=== PATIENT | male | born 1950 | race Caucasian/White ===

== ENCOUNTER → 2017-08-04 | Outpatient (CLI) | payer OTHER ==
[~2017-08-04] VITALS: Ht 177.8 cm; Wt 106.6 kg
[~2017-08-04] MED LIST: ACETAMINOPHEN-1 EAC1 PO; CARDIZEM CD120 MG PO; COUMADIN 5 MG TA5 M1 PO; FLEXERIL PO; FLOMAX0.4 MG PO; LASIX 40 MG TAB40 M2 PO; LOPRESSOR25 PO; METFORMIN HCL500 MG PO; NEURONTIN 300300 M1 PO; OMEPRAZOLE40 MG PO; PERCOCET 10-321 EACH PO; POTASSIUM20 PO; PRAVACHOL40 MG PO; SINEMET 25-1001 EAC1 PO; WELLBUTRIN XL300 MG PO
--- NOTE | ~2017-08-04 | HPC ---
[facility] [address] [place] [address] PAIN MANAGEMENT CONSULTATION Name: KAREN PEREZ Room #: REG [facility]#: [id number] Admission: 08/04/17 Attend Phys: Kevin Purdy DO Discharge: Date of : 52 Report #: [id number] THIS REPORT FOR: //name// CC: Darinel Purdy DATE OF SERVICE: 08/04/2017 REFERRING PHYSICIAN: Dr. Dashawn Joshi. CHIEF COMPLAINT: Low back pain, bilateral lower extremity pain with paresthesias. HISTORY OF PRESENT ILLNESS: As you know, the patient is a 67-year-old male with long-standing history of low back pain, bilateral lower extremity pain. The patient indicates pain began 15 years ago. He denies injury or trauma that may have led to symptom development. He indicates that he has had several epidural injections under fluoroscopic guidance at [facility], both pre and post-surgery, which provided some benefit, but it was transient in nature. He indicates he underwent surgery with Dr. Michel, a laminectomy in 2016. He received pain relief for approximately 1 year. He states that soon after his pain returned and progressively worsened. He states he has discussed his case with his primary care physician, who referred the patient to our clinic to discuss interventional treatments that might be beneficial. He indicates today pain is steady and intermittent, describes the pain as burning, shooting, aching, throbbing, sharp, stabbing, tender, numbness and tingling. He indicates pain level of around 8/10 today, daily average of 6-10/10, worst pain has been is 10/10. The patient states that standing and walking exacerbate symptoms, pain medications and lying down tends to improve pain. He has been referred to our service without imaging studies. He states he does take Percocet for pain control being provided through his PCP. He has been referred to our service to discuss options of treatment. PAST MEDICAL HISTORY: 1. Diabetes mellitus type 2. 2. Depression. 3. Peripheral neuropathy. 4. Acid reflux. 5. Hypertension. 6. Spinal stenosis. 7. Osteoarthritis. 8. Parkinson's disease. 9. History of mild transient ischemic attacks and CVAs, requiring anticoagulation. 10. Sleep apnea. [address] [address] PAIN MANAGEMENT CONSULTATION Name: KAREN PEREZ Room #: REG [facility] Weaver#: [id number] Admission: 08/04/17 Attend Phys: Kevin Purdy DO Discharge: Date of : 52 Report #: [id number] PAST SURGICAL HISTORY: Back surgeries x 2; carpal tunnel release in 2001, repeat 2002; and bilateral foot surgery. SOCIAL HISTORY: The patient denies tobacco, alcohol, IV or illicit drug use. He is on disability. He has been so for 10 years. He is receiving disability income. He is not in litigation in regards to pain. He is unaccompanied at today's visit. REVIEW OF SYSTEMS: Positive for weight gain, decrease in appetite, fatigue and weakness, frequent and recurrent headaches, wearing corrective eyewear, blurred and double vision, cataracts, hearing loss with tinnitus or sore throat, voice changes, palpitations, shortness of breath with walking or lying flat, loss of appetite, bowel movement changes, constipation, frequent urination, nocturia, kidney stones, sexual difficulty, testicular pain, numbness and tingling sensations in lower extremities bilaterally, paralysis, history of stroke, memory loss with confusion, nervousness, depression, insomnia, diabetes mellitus type 2, excessive thirst, urination, heat and cold intolerance, , bleeding tendencies secondary to anticoagulants. All other review of systems negative per 12-point review of systems other than those listed in history of present illness. Pain impact score 56/70 indicating severe interference of daily activities secondary to pain. ALLERGIES: No known drug allergies. CURRENT MEDICATIONS: Furosemide 70 mg once a day, metformin 500 mg twice a day, metoprolol 25 mg 1/2 tab p.o. b.i.d., vitamin D3 once a day, warfarin 5 mg per day, bupropion XL 300 mg per day, potassium chloride 20 mEq 2 tabs per day, omeprazole 40 mg per day, gabapentin 300 mg 2 tabs p.o. at bedtime, tamsulosin 0.4 mg once a day, carbidopa/levodopa 1 tab 4 times a day, diltiazem 120 mg once a day, pravastatin 20 mg per day, cyclobenzaprine 10 mg 3 times a day, Percocet 10/325 two tabs every 6 hours p.r.n. for pain, Tylenol 3 one tab p.o. b.i.d. p.r.n. mild pain. IMAGING: No imaging available. PQRS: The patient has osteoarthritis, no rheumatoid arthritis. Pain intensity today 8/10. He is a fall risk. He has had a fall in the past 3 months. He does not use any type of ambulatory device. He is on blood thinners in the form of warfarin. He has a history of hypertension. He has been on opioids for greater than 6 weeks being provided by another physician. Functional assessment tool, pain impact score shows 56/70, severe interference. PHYSICAL EXAMINATION: [facility] [address] [place] [address] PAIN MANAGEMENT CONSULTATION Name: KAREN PEREZ Room #: REG [facility]#: [id number] Admission: 08/04/17 Attend Phys: Kevin Purdy DO Discharge: Date of : 52 Report #: [id number] VITAL SIGNS: Blood pressure 150/87, pulse 109, respiratory rate 20 and unlabored. The patient is 98% on room air. Height 5 feet 10 inches tall, weight 235 pounds, BMI calculated 33.7. GENERAL: Well-developed, well-nourished, well-hydrated exogenously obese 67-year-old male, appears much older than stated age. He is placing current pain score at around 8/10. HEENT: Normocephalic, atraumatic. Pupils equal, round, reactive to light. Extraocular muscles are intact. Sclerae nonicteric without injection. NEUROLOGIC: Cranial nerves 2 through 12 grossly intact. Speech is fluent. The patient deemed a fair historian. LUNGS: Clear; no wheeze, rhonchi or rales. CARDIOVASCULAR: Tachycardic. No appreciable gallop or rub. ABDOMEN: Soft, obese, normoactive bowel sounds. EXTREMITIES: Show no clubbing, no cyanosis, no edema. MUSCULOSKELETAL: Lower extremity strength appears symmetrical, 5/5. He is intact to light touch from L1 through S2 dermatomes. Seated straight leg raising negative. Supine straight leg raising mildly positive on the right at 45 degrees. Allyssa's test is negative. Modified Gaenslen's positive for axial low back pain. Ankle clonus negative. Babinski is negative. Deep tendon reflexes are symmetrical at patella and Achilles. Lumbar provocation testing including extension, rotation, lateral flexion all intensify axial back pain. Well healed surgical scars over the lumbar region. There is some paraspinal muscle tenderness. ASSESSMENT: 1. Chronic lumbar radiculopathy. 2. Lumbosacral spondylosis with radicular symptoms. 3. Lumbar degeneration. 4. Chronic intractable pain. PLAN: 1. The patient has been referred to our service for discussion of low back pain, bilateral lower extremity pain. There is a presumptive diagnosis of spinal stenosis given to the patient by his primary care. Given his bilateral nature of symptoms, does appear that he has some central canal stenosis, the extent of which is not determinable by physical exam alone. We have recommended the patient begin with x-ray imaging of the lumbar spine. We will send him for the x-ray imaging today. This will help us determine the extent of bony abnormalities, though ultimately we would need to have an MRI of the lumbar spine to further evaluate. We will send the patient for x-ray imaging today. He will return to see his primary care to initiate MRI referral. The MRI will be necessary to determine the course of treatment in this patient's case. The patient and I discussed at length the interventional treatments we have available for lumbar radicular symptoms, all of which would require the patient to come off of his warfarin. I would recommend that MRI be obtained initially, so that we can plan fully the treatment course. Then, when to have the patient [address] [address] PAIN MANAGEMENT CONSULTATION Name: JESSIEYANETKAREN Room #: REG CLI Meg#: [id number] Admission: 08/04/17 Attend Phys: Kevin Purdy DO Discharge: Date of : 52 Report #: [id number] come off the warfarin for injection therapies, we can be more definitive in our treatment timing. The patient was amenable to the idea of undergoing imaging, so we can determine if surgical options are necessary initially, that way we can move forward with more aggressive treatment options if needed. 2. The patient will be sent for x-ray imaging of the lumbar spine. We have requested AP, lateral plain films to be done as quickly as possible, review the findings once available. The patient can contact our clinic either later today or first thing tomorrow for the results. These results will also be provided to his primary care physician. 3. No medication changes made at today's visit. Would recommend the patient continue on current medication management. 4. The patient and I discussed the need to come off his warfarin for at least 5 days. This is per the LIZA guidelines in preparation for neural axial blockade of any type including epidural injections, intra-articular facet injections and any other type of injection in and around the lumbar spine area. The patient will need to receive clearance from his prescribing physician to come off the Coumadin in preparation for such procedures. I did describe to the patient the concerns we have with coming off anticoagulants with his history. He will need to receive clearance to come off this medication. 5. We will see the patient back in followup visit once he has completed his MRI. We will review the findings at that time and discuss interventional treatment options that we might have available to treat his ongoing pain issues. I have recommended the patient to gain clearance to come off his Coumadin, but not discontinue his Coumadin until after which time we have reviewed the MRI with the patient and determine the options for treatment in which direction we wish to move for interventional therapies. 6. I wish to thank the referring physician for the opportunity to see this patient in consultation. We will keep you apprised of his response to treatment once we have determined the treatment path. We wish to again, thank you for the opportunity to see the patient in consultation. We will await his return with imaging available. Again, we wish to thank you for the opportunity to see this patient in consultation. <ELECTRONICALLY SIGNED> By: Kevin Purdy DO 08/11/17 [id number] Kevin Purdy DO /nt
[2017-08-04 10:08] VITALS: BP 150/87
== END ==
LOC: PAIN 07:10
DX: M47.895 Other spondylosis, thoracolumbar region (principal); M54.16 Radiculopathy, lumbar region; M47.897 Other spondylosis, lumbosacral region; M51.36 Other intervertebral disc degeneration, lumbar region; E11.9 Type 2 diabetes mellitus without complications; I10 Essential (primary) hypertension; G20 Parkinson's disease; G45.9 Transient cerebral ischemic attack, unspecified

== ENCOUNTER → 2017-10-14 | Outpatient (CLI) | payer OTHER, MEDICARE ==
[~2017-10-14] VITALS: Ht 177.8 cm; Wt 107.6 kg
[~2017-10-14] MED LIST changes: +XARELTO20 MG PO
--- NOTE | ~2017-10-14 | HPC ---
[facility] [place] [address] PAIN MANAGEMENT CONSULTATION Name: KAREN PEREZ [facility] [id number] Admission: 10/14/17 Attend Phys: Kevin Purdy DO Discharge: Date of : 52 Report #: [id number] THIS REPORT FOR: //name// CC: Darinel Purdy DATE OF SERVICE: 10/14/2017 CHIEF COMPLAINT: Low back pain, bilateral lower extremity pain and paresthesias. HISTORY OF PRESENT ILLNESS: As you know, the patient is a 67-year-old male with longstanding history of low back pain, bilateral lower extremity pain and paresthesias. The patient indicates pain began about 15 years ago. He denies any specific injury or trauma. We saw the patient in consultation 08/04/2017, where he was advised treatment options for his chronic lumbar radiculopathy. The patient chose to consider options and he has returned today in followup visit 10/14/2017 to undergo epidural injection under fluoroscopic guidance. He indicates today a pain level of 10/10, states his pain is sharp, shooting, aching, burning in sensation, exacerbated with standing, walking, improves with medications and lying down. The patient returns today in followup visit requesting epidural injection under fluoroscopic guidance in hopes of improving his ongoing low back and bilateral lower extremity symptoms. ALLERGIES: NO KNOWN DRUG ALLERGIES. CURRENT MEDICATIONS: Tylenol No. 3, oxycodone, cyclobenzaprine, pravastatin, diltiazem, carbidopa/levodopa, tamsulosin, gabapentin, omeprazole, furosemide, metformin, metoprolol, bupropion and potassium chloride. He has discontinued his Xarelto. SOCIAL HISTORY: The patient denies tobacco, alcohol, IV or illicit drug use. He is on disability. He has been so for over 10 years. He is unaccompanied today. IMAGING: No new imaging available. PQRS: The patient has osteoarthritis of the back, neck, shoulders and knees. No rheumatoid arthritis. The patient's intensity of pain is rated at 10/10. He is not a fall risk, has not had a fall in the last 3 months. He is on a blood thinner in the form of Xarelto, but discontinued in preparation for today's procedure. He is treated for hypertension. He is not on opioids. He has a low opioid assessment risk. His functional assessment pain impact score 56/70 indicating severe interference. [address] [address] PAIN MANAGEMENT CONSULTATION Name: KAREN PEREZ Room #: REG [facility]#: [id number] Admission: 10/14/17 Attend Phys: Kevin Purdy DO Discharge: Date of : 52 Report #: [id number] PHYSICAL EXAMINATION: VITAL SIGNS: Blood pressure 177/95, pulse 86, respiratory rate 20 and unlabored. The patient is 99% on room air. Height 5 feet 10 inches tall, weight 237.2 pounds, BMI calculated 34.0. GENERAL: Well-developed, well-nourished, well-hydrated exogenously obese 67-year-old male appearing stated age, placing current pain score 10/10. HEENT: Normocephalic, atraumatic. Pupils are equal, round, reactive to light. Extraocular muscles are intact. EXTREMITIES: Show no clubbing, no cyanosis, no edema. MUSCULOSKELETAL: Lower extremity strength appears symmetrical 5/5, intact to light touch from L1 through S2 dermatomes. Seated straight leg raising negative. Supine straight leg raising mildly positive on the right. Fabere's test negative. Gait mildly antalgic favoring right lower extremity over left. ASSESSMENT: 1. Chronic lumbar radiculopathy. 2. Lumbosacral spondylosis with radicular symptoms. 3. Lumbar degeneration. 4. Chronic intractable pain. PLAN: 1. The patient returns today in followup visit to undergo epidural injection under fluoroscopic guidance. The patient has stopped his Xarelto 3 days prior to today's appointment in preparation for an injection. He has received clearance to come off his Xarelto by the prescribing physician. He is off the Xarelto in a timely manner, so he can undergo the procedure today. The patient has been advised of the risks and benefits. Following was discussed. We discussed risks that include, but are not necessarily limited to bleeding, bruising, infection, worsening pain, no relief of pain, also risk of temporary or permanent muscle weakness, temporary or permanent nerve damage, possible paralysis and . The patient states understood and wished to proceed. The patient will restart his Xarelto this evening and continue the Xarelto as directed. He will remain on the Xarelto until our next appointment; we will determine if next in the series of epidural injections might be necessary. If that is the case, then we will have the patient come off the Xarelto in preparation for the next in the series of epidural injections. PROCEDURE NOTE: DESCRIPTION OF PROCEDURE: L5-S1 right paramedian epidural steroid injection under fluoroscopic guidance. This is the first procedure of the first series that the patient is undergoing. [address] [address] PAIN MANAGEMENT CONSULTATION Name: KAREN PEREZ Room #: REG CL Meg#: [id number] Admission: 10/14/17 Attend Phys: Kevin Purdy DO Discharge: Date of : 52 Report #: [id number] After obtaining written consent, the patient was taken back to the fluoroscopy suite, placed in a prone position with pillow under the abdomen to decrease lumbar lordosis. The skin overlying the lumbosacral area was then prepped and draped in aseptic fashion. The L5-S1 vertebral interspace was then identified by AP fluoroscopy. The skin and subcutaneous tissue overlying the target site of injection was anesthetized with 3 mL 1% lidocaine. A 20-gauge 3-1/2 inch Tuohy needle was then advanced under fluoroscopic guidance towards the epidural space using a right paramedian approach. The epidural space was identified using loss of resistance to air technique. After negative aspiration for heme or cerebrospinal fluid, a total of 1 mL of Omnipaque was injected. A lumbar epidurogram was confirmed using both AP and lateral fluoroscopy. After negative aspiration for heme or cerebrospinal fluid, 5 mL of a solution containing 2 mL 40 mg per mL, 80 mg total triamcinolone was injected in increments. Contrast spread was noted posterior epidural space. The needle was then retracted approximately half way and needle tract flushed with 1 mL of 1% lidocaine. Needle was then removed. There were no apparent sensory or motor deficits in the lower extremity following the procedure. A sterile bandage was placed over the injection site. The heart rate, pulse, oximetry and blood pressure were continuously monitored after the procedure. There were no apparent complications. The patient tolerated the procedure well and was carefully escorted to the recovery room in stable condition. There were no apparent complications. After meeting discharge criteria, the patient was then discharged home. <ELECTRONICALLY SIGNED> By: Kevin Purdy DO 10/20/17 [id number] 0822 Kevin Purdy DO /nt
[2017-10-14 10:30] VITALS: BP 177/95
== END | disposition home or self-care (01) ==
LOC: PAIN 07:47
DX: M51.16 Intervertebral disc disorders with radiculopathy, lumbar region (principal); M47.27 Other spondylosis with radiculopathy, lumbosacral region; G89.29 Other chronic pain; I10 Essential (primary) hypertension; M19.90 Unspecified osteoarthritis, unspecified site; Z79.891 Long term (current) use of opiate analgesic; Z79.899 Other long term (current) drug therapy; Z87.891 Personal history of nicotine dependence